=== PATIENT | male | born 1975 | race African-American/Black ===

== ENCOUNTER 2022-06-05 08:08 | Emergency (ER) | payer SELFPAY ==
[~2022-06-05] VITALS: Ht 175.3 cm; Wt 70.3 kg
--- NOTE | 2022-06-05 08:10 | NUR ---
PT ABLE TO OPNE HIS EYES
--- NOTE | 2022-06-05 08:16 | NUR ---
TO ER BED 4. L EYE DISCOMFORT X 2 DAYS POSSIBLE FOREIGN BODY. PT VITALS ARE WITHIN NORMAL LIMITS. AWAITING MD VEGA.
[2022-06-05] MEDS ORDERED: TROPICAMIDE 1% ONE (08:29)
[2022-06-05] MEDS ORDERED: FLUORESCEIN SODIUM OPHTH 1 EA STRIP ONE (08:30)
[2022-06-05] MEDS ORDERED: FLUORESCEIN SODIUM OPHTH 1 EA STRIP OP ONE (08:30)
--- NOTE | 2022-06-05 08:40 | NUR ---
DR. COOK AT BED SIDE FOR EYE EXAMIN WITH TETRCANE EYE DROPS
[2022-06-05] MEDS ORDERED: GENT5DRO4 EACHEYE (08:46)
[2022-06-05] MEDS ORDERED: TETRACAINE HCL 0.5% OPHTALMIC 15 ML BOTTLE OP ONE (09:00)
--- NOTE | 2022-06-05 09:00 | NUR ---
PT FELLING IMPROVING AND ABLE TO OPEN HIS EYES NO DIFECULTUY
--- NOTE | 2022-06-05 09:13 | NUR ---
Patient discharged to home in stable condition. Written and verbal after care instructions given. Patient verbalizes understanding of instruction.
[2022-06-05 09:23] VITALS: BP 131/79
== END 2022-06-05 09:24 | disposition home or self-care (01) ==
LOC: ER 08:12
DX: S05.02XA Injury of conjunctiva and corneal abrasion without foreign body, left eye, initial encounter (principal); X58.XXXA Exposure to other specified factors, initial encounter; Y93.89 Activity, other specified; Y92.89 Other specified places as the place of occurrence of the external cause; Y99.8 Other external cause status